=== PATIENT | male | born 1990 | race Caucasian/White ===

== ENCOUNTER 2017-04-19 15:37 | Emergency (ER) | payer BC ==
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
[2017-04-19] MEDS ORDERED: Lidocaine 1% 20 ML MDV INJECT ONE (17:34)
--- NOTE | 2017-04-20 10:05 | US ---
EXAM DATE: 04/19/17 PATIENT'S AGE: 26 Patient: GERALDINE NUNEZ Facility: [place], [place] Site . Site : [id number] Study: US Extremity Right lateral ankle-04/19/2017 4:43:26 PM Ordering Physician: Doctor Scott Final Report: HISTORY: Staple lodged in skin of the right lower extremity. Patient states he found a staple in his ankle which was never removed after surgery in December. FINDINGS: Multiple grayscale static images from an ultrasound evaluation at the area the patient indicates at the lateral ankle. There is a 4 x 1 mm linear echogenic structure with some surrounding hypo echogenicity measuring 10 x 6 mm. This is 6 mm deep to the skin surface. There is diffuse vascularity seen around this area. IMPRESSION: There is a tiny 4 x 1 mm linear echogenic focus seen within the lateral soft tissues approximately 6 mm below the skin surface with some surrounding adjacent edema suspicious for a surgical clip or staple. Dictated by Pam Waite MD @ 04/19/2017 5:13:00 PM Dictated by: Pam Waite MD @ 04/19/2017 17:13:09 (Electronic Signature) Report Signed by Proxy. RAZ
== END 2017-04-19 18:40 | disposition home or self-care (01) ==
LOC: MW.ED 15:37
DX: S80.851A Superficial foreign body, right lower leg, initial encounter (principal); L03.115 Cellulitis of right lower limb; W45.8XXA Other foreign body or object entering through skin, initial encounter
CPT/HCPCS: 10120; 76881-26-RT; 76881-LT; 76881-RT; 99282; 99283